=== PATIENT | female | born 1960 | race Caucasian/White ===

== ENCOUNTER 2016-04-17 23:34 | Emergency (ER) | payer SELFPAY ==
[~2016-04-17] VITALS: Ht 157.5 cm; Wt 64.0 kg
[2016-04-17 23:39] VITALS: BP 174/97; PULSE 109; RESP 18; TEMP 98.6; O2SAT 98
== END 2016-04-18 00:51 | disposition left against medical advice (07) ==
LOC: NETRI 23:34
DX: R68.89 Other general symptoms and signs (principal)
CPT/HCPCS: 99281